=== PATIENT | male | born 1930 | race Caucasian/White ===

== ENCOUNTER 2017-04-15 12:03 | Emergency (ER) | payer OTHER ==
[2017-04-15 12:14] VITALS: TEMP 97.9
--- NOTE | 2017-04-15 12:34 | CPEKG ---
Heart Rate: 94 RR Interval: 638 P-R Interval: 208 QRSD Interval: 158 QT Interval: 412 QTC Interval: 516 P [place]: 67 QRS [place]: -80 T Wave [place]: 95 EKG Severity - ABNORMAL ECG - EKG Impression: ATRIAL-VENTRICULAR DUAL-PACED RHYTHM Electronically Signed By: Bam Chan 15-Apr-2017 13:15:30
[2017-04-15] MEDS ORDERED: NS 1,000 ML IV ONE (13:05)
--- NOTE | 2017-04-15 13:11 | EDPHY ---
H & P Stated Complaint: pts family howard states pt is weak/wobbly and has contusion to forehead Time Seen by Provider: 04/15/17 12:50 HPI/ROS: CHIEF COMPLAINT: Unsteady gait HISTORY OF PRESENT ILLNESS: Patient is an 87-year-old man who is brought to the emergency department with his family for unsteady gait and bump on his forehead. 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 Patient states that last night he was cold and so turned the heater up all the way. He states that he cannot see the numbers. Sometime during the night he presumably fell or bumped into a wall because he has a abrasion to his left forehead. He also has some mild pain in his right wrist. This morning when his sales representative [employer] came to see him they found him in the shower. The sales representative [employer] said his room was exceedingly hot. He needed more assistance than usual to get back to the bed. He thought that he was dehydrated so he drink a lot of water and then had to urinate. He states that he has felt woozy and wobbly all morning and was waiting for his symptoms to resolve but they did not. His daughter states that she noticed his left face seems slightly more weak than baseline. Patient had similar symptoms in December with a urinary tract infection. He also has a history of BPH. No fevers. No chest pain. No shortness of breath. REVIEW OF SYSTEMS: Constitutional: denies: chills, fever, recent illness, recent injury EENTM: denies: blurred vision, double vision, nose congestion Respiratory: denies: cough, shortness of breath Cardiac: denies: chest pain, irregular heart rate, lightheadedness, palpitations Gastrointestinal/Abdominal: denies: abdominal pain, diarrhea, nausea, vomiting, blood streaked stools Genitourinary: denies: dysuria, frequency, hematuria, pain Musculoskeletal: denies: joint pain, muscle pain Skin: denies: lesions, rash, jaundice, bruising Neurological: denies: headache, numbness, paresthesia, tingling, dizziness, weakness Hematologic/Lymphatic: denies: blood clots, easy bleeding, easy bruising Immunologic/allergic: denies: HIV/AIDS, transplant EXAM: GENERAL: Well-appearing, well-nourished and in no acute distress. HEAD: Atraumatic, normocephalic. EYES: Pupils equal round and reactive to light, extraocular movements intact, sclera anicteric, conjunctiva are normal. ENT: TMs normal, nares patent, oropharynx clear without exudates. Moist mucous membranes. NECK: Normal range of motion, supple without lymphadenopathy or JVD. LUNGS: Breath sounds clear to auscultation bilaterally and equal. No wheezes rales or rhonchi. HEART: Regular rate and rhythm without murmurs, rubs or gallops. ABDOMEN: Soft, nontender, normoactive bowel sounds. No guarding, no rebound. No masses appreciated. BACK: No CVA tenderness, no spinal tenderness, step-offs or deformities EXTREMITIES: Normal range of motion, no pitting or edema. No clubbing or cyanosis. NEUROLOGICAL: Very minimal decrease in the strength and smile on left. Some weakness at baseline possibly worse than baseline according to family. No tongue deviation. Normal forehead and eye closure.. Normal speech, normal gait. 5/5 strength, normal movement in all extremities, normal sensation. No drift in legs or hands. Normal cerebellar exam. No difficulty with speech. PSYCH: Normal mood, normal affect. SKIN: Warm, dry, normal turgor, no visible rashes or lesions. Source: Patient, Family - Personal History Current Tetanus/Diphtheria Vaccine: Unsure - Medical/Surgical History Hx Asthma: No Hx Chronic Respiratory Disease: No Hx Diabetes: No Hx Cardiac Disease: Yes Hx Renal Disease: No Hx Cirrhosis: No Hx Alcoholism: No Hx HIV/AIDS: No Hx Splenectomy or Spleen Trauma: No Other PMH: CVA, residual left-sided deficits, colon cancer, complete heart block , pacemaker - Family History Significant Family History: No pertinent family hx - Social History Smoking Status: Never smoked Alcohol Use: Sober Drug Use: None Constitutional: Initial Vital Signs Temperature (C) 36.6 C 04/15/17 12:09 Heart Rate 84 04/15/17 12:09 Respiratory Rate 16 04/15/17 12:09 Blood Pressure 156/79 H 04/15/17 12:09 O2 Sat (%) 98 04/15/17 12:09 O2 Delivery Mode Room Air Allergies/Adverse Reactions: No Known Allergies Allergy (Verified 04/15/17 12:08) Home Medications: Medication Instructions Recorded ASPIRIN 04/15/17 Amlodipine Besylate 04/15/17 Cephalexin [Keflex] 500 mg PO TID #21 cap 04/15/17 Finasteride 04/15/17 Lactaid 04/15/17 Levothyroxine 04/15/17 RAPAFLO 04/15/17 Valsartan 04/15/17 Medical Decision Making - Diagnostics EKG Interpretation: An EKG obtained and was read and documented in trace view. Please see trace view for full reading and report. AV paced rhythm, Imaging Results: Imaging Impressions Head CT 04/15/17 13:05 Impression: 1. Moderate atrophy. 2. No hemorrhage, mass effect, or definite acute peripheral infarct. 3. Mild nonspecific hypodensities in the white matter of bilateral cerebral hemispheres. Differential diagnosis includes microvascular ischemic disease, post-infectious/post-inflammatory sequela, atypical demyelinating disease, or migraine-related sequela. Small white matter lacunar infarcts may also have this appearance. If symptoms worsen, additional imaging may be necessary. Imaging: Discussed imaging studies w/ call center supervisor Radiologist ED Course/Re-evaluation: 2:05 p.m. we discussed the lab and imaging results. We discussed the possibility that this is caused by a mild UTI. Patient and family agree with this states that this is happened before. I will start him on Rocephin and discharged with Keflex. I did offer admission for observation to confirm that his symptoms improved but he and his family decline. They would prefer to go home. I gave them strict precautions to return here tomorrow if his symptoms are not improving or if they worsen at all. We did give the patient a road test here and his daughter states that he is at his baseline. They understand that I cannot completely rule out CVA. Differential Diagnosis: Partial list of the Differential diagnosis considered include but were not limited to; urinary tract infection, dehydration, CVA and although unlikely based on the history and physical exam, I also considered hemorrhage, electrolyte abnormality, thyroid abnormality. I discussed these differential diagnoses and the plan with the patient and family as well as the usual and expected course. The patient understands that the diagnosis is provisional and that in medicine we are not always correct and that further workup is often warranted. Usual and customary warnings were given. All of the patient's questions were answered. The patient was instructed to return to the emergency department should the symptoms at all worsen or return, otherwise to followup with the physician as we discussed. - Data Points Laboratory Results: Laboratory Results 04/15/17 12:30 04/15/17 12:30 04/15/17 04/15/17 04/15/17 13:35 12:30 12:30 WBC RBC Hgb Hct MCV MCH MCHC RDW Plt Count MPV Neut % (Auto) Lymph % (Auto) [place] % (Auto) Eos % (Auto) Baso % (Auto) Nucleat RBC Rel Count Absolute Neuts (auto) Absolute Lymphs (auto) Absolute Monos (auto) Absolute Eos (auto) Absolute Basos (auto) Absolute Nucleated RBC Immature Gran % Immature Gran # PT 13.2 SEC SEC (12.0-15.0) INR 0.98 (0.83-1.16) APTT 30.3 SEC SEC (23.0-38.0) Sodium 144 mEq/L mEq/L (134-144) Potassium 4.1 mEq/L mEq/L (3.5-5.2) Chloride 109 mEq/L mEq/L (97-110) Carbon Dioxide 22 mEq/l mEq/l (22-31) Anion Gap 13 mEq/L mEq/L (8-16) BUN 18 mg/dL mg/dL (7-23) Creatinine 1.0 mg/dL mg/dL (0.7-1.3) Estimated GFR > 60 Glucose 98 mg/dL mg/dL (70-100) Calcium 9.1 mg/dL mg/dL (8.5-10.4) Total Bilirubin 0.6 mg/dL mg/dL (0.1-1.4) Conjugated Bilirubin 0.4 mg/dL mg/dL (0.0-0.5) Unconjugated Bilirubin 0.2 mg/dL mg/dL (0.0-1.1) AST 27 IU/L IU/L (17-59) ALT 27 IU/L IU/L (21-72) Alkaline Phosphatase 74 IU/L IU/L (38-126) Total Protein 7.5 g/dL g/dL (6.3-8.2) Albumin 4.3 g/dL g/dL (3.5-5.0) TSH 2.170 uIU/mL uIU/mL (0.465-4.680) Free T4 1.23 ng/dL ng/dL (0.59-2.19) Urine Color YELLOW Urine Appearance CLEAR Urine pH 5.0 (5.0-7.5) Ur Specific [place] 1.017 (1.002-1.030) Urine Protein NEGATIVE (NEGATIVE) Urine Ketones NEGATIVE (NEGATIVE) Urine Blood NEGATIVE (NEGATIVE) Urine Nitrate NEGATIVE (NEGATIVE) Urine Bilirubin NEGATIVE (NEGATIVE) Urine Urobilinogen NEGATIVE EU EU (0.2-1.0) Ur Leukocyte Esterase TRACE H (NEGATIVE) Urine RBC 1-3 /hpf /hpf (0-3) Urine WBC 5-10 /hpf H /hpf (0-3) Ur Epithelial Cells NONE SEEN /lpf /lpf (NONE-1+) Urine Bacteria TRACE /hpf H /hpf (NONE SEEN) Urine Glucose NEGATIVE (NEGATIVE) 04/15/17 12:30 WBC 10.33 10^3/uL H 10^3/uL (3.80-9.50) RBC 4.67 10^6/uL 10^6/uL (4.40-6.38) Hgb 15.7 g/dL g/dL (13.7-17.5) Hct 44.2 % % (40.0-51.0) MCV 94.6 fL fL (81.5-99.8) MCH 33.6 pg pg (27.9-34.1) MCHC 35.5 g/dL g/dL (32.4-36.7) RDW 13.3 % % (11.5-15.2) Plt Count 236 10^3/uL 10^3/uL (150-400) MPV 11.7 fL fL (8.7-11.7) Neut % (Auto) 73.8 % % (39.3-74.2) Lymph % (Auto) 14.7 % L % (15.0-45.0) [place] % (Auto) 7.4 % % (4.5-13.0) Eos % (Auto) 2.9 % % (0.6-7.6) Baso % (Auto) 0.7 % % (0.3-1.7) Nucleat RBC Rel Count 0.0 % % (0.0-0.2) Absolute Neuts (auto) 7.63 10^3/uL H 10^3/uL (1.70-6.50) Absolute Lymphs (auto) 1.52 10^3/uL 10^3/uL (1.00-3.00) Absolute Monos (auto) 0.76 10^3/uL 10^3/uL (0.30-0.80) Absolute Eos (auto) 0.30 10^3/uL 10^3/uL (0.03-0.40) Absolute Basos (auto) 0.07 10^3/uL 10^3/uL (0.02-0.10) Absolute Nucleated RBC 0.00 10^3/uL 10^3/uL (0-0.01) Immature Gran % 0.5 % % (0.0-1.1) Immature Gran # 0.05 10^3/uL 10^3/uL (0.00-0.10) PT INR APTT Sodium Potassium Chloride Carbon Dioxide Anion Gap BUN Creatinine Estimated GFR Glucose Calcium Total Bilirubin Conjugated Bilirubin Unconjugated Bilirubin AST ALT Alkaline Phosphatase Total Protein Albumin TSH Free T4 Urine Color Urine Appearance Urine pH Ur Specific [place] Urine Protein Urine Ketones Urine Blood Urine Nitrate Urine Bilirubin Urine Urobilinogen Ur Leukocyte Esterase Urine RBC Urine WBC Ur Epithelial Cells Urine Bacteria Urine Glucose Medications Given: Discontinued Medications Sodium Chloride (Ns) 1,000 mls @ 0 mls/hr IV ONCE ONE; Wide Open PRN Reason: Protocol Stop: 04/15/17 13:06 Last Admin: 04/15/17 13:11 Dose: 1,000 mls Ceftriaxone Sodium/Dextrose (Rocephin 1 Gm (Premix)) 50 mls @ 100 mls/hr IV EDNOW ONE PRN Reason: Protocol Stop: 04/15/17 14:33 Last Admin: 04/15/17 14:09 Dose: 50 mls Departure - Departure Disposition: Home, Routine, Self-Care Clinical Impression: Weakness generalized Urinary tract infection Qualifiers: Urinary tract infection type: acute cystitis Hematuria presence: without hematuria Qualified Code(s): N30.00 - Acute cystitis without hematuria Condition: Fair Instructions: Urinary Tract Infection in Men (ED), Weakness (ED) Referrals: Shyanne Corey MD [Primary Care Provider] - As per Instructions Prescriptions: Cephalexin [Keflex] 500 mg PO TID #21 cap
[2017-04-15 13:12] VITALS: RESP 18; O2SAT 94
[2017-04-15 13:16] LABS: PLATELET COUNT 236 10^3/uL (150-400)
[2017-04-15 13:21] LABS: INR 0.98 (0.83-1.16); PROTIME(PATIENT) 13.2 SEC (12.0-15.0)
[2017-04-15 14:02] VITALS: PULSE 82
[2017-04-15 14:30] VITALS: BP 166/75
== END 2017-04-15 14:37 | disposition home or self-care (01) ==
DX: R53.1 Weakness (principal); N30.00 Acute cystitis without hematuria; B95.2 Enterococcus as the cause of diseases classified elsewhere; E86.9 Volume depletion, unspecified; Z79.82 Long term (current) use of aspirin; Z85.038 Personal history of other malignant neoplasm of large intestine; Z86.73 Personal history of transient ischemic attack (TIA), and cerebral infarction without residual deficits; Z95.0 Presence of cardiac pacemaker
CPT/HCPCS: 70450; 93005; 96361; 96365; 99285; J0696

== ENCOUNTER 2018-05-19 05:03 | Inpatient (IN) | payer OTHER ==
[2018-05-19] MEDS: NITROGLYCERIN 0.4 MG BTL SL PRN ×3 (05:20→05:51)
[2018-05-19] MEDS ORDERED: NITROGLYCERIN 0.4 MG BTL SL ONE (05:20)
[2018-05-19] MEDS ORDERED: NS 500 ML IV ONE (05:25)
--- NOTE | 2018-05-19 05:32 | EDPHY ---
H & P Stated Complaint: chest pain Source: Patient Exam Limitations: No limitations - Medical/Surgical History Hx Asthma: No Hx Chronic Respiratory Disease: No Hx Diabetes: No Hx Cardiac Disease: Yes Hx Renal Disease: No Hx Cirrhosis: No Hx Alcoholism: No Hx HIV/AIDS: No Hx Splenectomy or Spleen Trauma: No Other PMH: CVA, residual left-sided deficits, colon cancer, complete heart block , pacemaker - Social History Smoking Status: Never smoked <Nai Rodríguez - Last Filed: 05/19/18 06:52> <Genna Lawton - Last Filed: 05/19/18 08:16> Time Seen by Provider: 05/19/18 05:25 HPI/ROS: HPI The patient presents brought in by ambulance from [facility] with chest pain which awoke him from sleep at approximately 3:30 a.m.. The pain is described as a sharp sensation in his substernal region, mostly in the left portion of his chest. It has been constant since it started, improved with nitroglycerin given by paramedics, though now has returned. The pain does not radiate. He has not had it before. He has mild shortness of breath. He does not have any nausea, vomiting, dizziness, diaphoresis. He was feeling well yesterday when he went to bed. He was given full-dose aspirin in the ambulance. REVIEW OF SYSTEMS 10 systems were reviewed and negative with the exception of the elements mentioned in the history of present illness. PMHx: Complete heart block status post pacemaker placement by Dr. Ester mora, hypertension, history of TIA Soc Hx: Resides in assisted living, uses a walker and a motorized cart at baseline, here with his daughter PHYSICAL General Appearance: Alert, no distress Eyes: Pupils equal and round no pallor or injection ENT, Mouth: Mucous membranes moist Respiratory: There are no retractions, lungs are clear to auscultation Cardiovascular: Regular rate and rhythm Gastrointestinal: Abdomen is soft and non-tender, no masses, bowel sounds normal Neurological: A&O, moves all extremities Skin: Warm and dry, no rashes Musculoskeletal: Neck is supple non tender Extremities: symmetrical, full range of motion Psychiatric: Patient is oriented X 3, there is no agitation (Nai Rodríguez) Constitutional: Initial Vital Signs Temperature (C) 36.4 C 05/19/18 05:03 Heart Rate 88 05/19/18 05:03 Respiratory Rate 18 05/19/18 05:03 Blood Pressure 114/55 L 05/19/18 05:03 O2 Sat (%) 95 05/19/18 05:03 O2 Delivery Mode Room Air Allergies/Adverse Reactions: No Known Allergies Allergy (Verified 04/15/17 12:08) Home Medications: Medication Instructions Recorded Aspirin [Aspirin 81mg (*)] 81 mg PO DAILY 04/15/17 Finasteride [Proscar 5 MG (*)] 5 mg PO DAILY 04/15/17 Levothyroxine [Synthroid 88 mcg 88 mcg PO DAILY06 04/15/17 (*)] Silodosin [Rapaflo] 8 mg PO DAILY 04/15/17 Valsartan [Diovan (*)] 160 mg PO DAILY 04/15/17 amLODIPine BESYLATE [Norvasc 5 mg 5 mg PO DAILY 04/15/17 (*)] Herbals/Supplements -Info Only 1 ea PO DAILY 05/19/18 Medical Decision Making - Diagnostics Imaging: I viewed and interpreted images myself <Nai Rodríguez - Last Filed: 05/19/18 06:52> - Diagnostics Imaging: Discussed imaging studies w/ junior designer Radiologist, I viewed and interpreted images myself <Genna Lawton - Last Filed: 05/19/18 08:16> - Diagnostics EKG Interpretation: EKG: Complete interpretation has been separately recorded in the [employer] archive. Summary impression: AV dual paced rhythm at rate of 90 (Nai Rodríguez) Imaging Results: Chest x-ray two views shows pacer wires in place, no cardiomegaly, no infiltrate , interpreted by me, radiology interpretation pending. (Nai Rodríguez) ED Course/Re-evaluation: CT angiogram of chest: Negative study. Results were discussed with staff radiologist . The patient was transferred to the floor in stable condition at 8:15 a.m.. ( Genna Lawton) Differential Diagnosis: 88-year-old male with history of complete heart block status post pacemaker placement, TIA, hypertension presents from home with left-sided substernal chest pain which awoke him from sleep. Pain persists. Differential diagnosis includes ACS, GERD, gastritis, pneumonia, PE. I met the paramedics at the bedside to obtain their report. I have ordered additional nitroglycerin is patient's pain has returned. Plan to check basic labs, chest x-ray. Patient's labs are relatively unremarkable. I-STAT troponin is negative. D- dimer is slightly elevated. When I reassessed the patient, he was complaining of some back pain and rib cage pain so I did order CT scan of his chest for him. I have discussed admission to the hospital and the patient is agreeable. I have discussed the case with Dr. Elam who will admit the patient to the PCU. We are awaiting final read on the patient's CT angio chest at this time. HEART score is 4, moderate risk. (Nai Rodríguez) - Data Points Laboratory Results: Laboratory Results 05/19/18 05:03 05/19/18 05:03 05/19/18 05/19/18 05/19/18 05:03 05:03 05:03 WBC RBC Hgb Hct MCV MCH MCHC RDW Plt Count MPV Neut % (Auto) Lymph % (Auto) [place] % (Auto) Eos % (Auto) Baso % (Auto) Nucleat RBC Rel Count Absolute Neuts (auto) Absolute Lymphs (auto) Absolute Monos (auto) Absolute Eos (auto) Absolute Basos (auto) Absolute Nucleated RBC Immature Gran % Immature Gran # D-Dimer 0.91 ug/mLFEU H ug/mLFEU (0.00-0.50) Sodium 140 mEq/L mEq/L (135-145) Potassium 4.0 mEq/L mEq/L (3.5-5.2) Chloride 108 mEq/L mEq/L (97-110) Carbon Dioxide 20 mEq/l L mEq/l (22-31) Anion Gap 12 mEq/L mEq/L (6-14) BUN 23 mg/dL mg/dL (7-23) Creatinine 1.1 mg/dL mg/dL (0.7-1.3) Estimated GFR > 60 Glucose 196 mg/dL H mg/dL (70-100) Calcium 8.9 mg/dL mg/dL (8.5-10.4) Troponin I 0.027 ng/mL ng/mL (0.000-0.034) NT-Pro-B Natriuret Pep 319 pg/mL pg/mL (0-450) 05/19/18 05:03 WBC 13.77 10^3/uL H 10^3/uL (3.80-9.50) RBC 4.63 10^6/uL 10^6/uL (4.40-6.38) Hgb 14.5 g/dL g/dL (13.7-17.5) Hct 45.1 % % (40.0-51.0) MCV 97.4 fL fL (81.5-99.8) MCH 31.3 pg pg (27.9-34.1) MCHC 32.2 g/dL L g/dL (32.4-36.7) RDW 13.2 % % (11.5-15.2) Plt Count 250 10^3/uL 10^3/uL (150-400) MPV 11.6 fL fL (8.7-11.7) Neut % (Auto) 82.6 % H % (39.3-74.2) Lymph % (Auto) 9.8 % L % (15.0-45.0) [place] % (Auto) 5.4 % % (4.5-13.0) Eos % (Auto) 0.7 % % (0.6-7.6) Baso % (Auto) 0.6 % % (0.3-1.7) Nucleat RBC Rel Count 0.0 % % (0.0-0.2) Absolute Neuts (auto) 11.36 10^3/uL H 10^3/uL (1.70-6.50) Absolute Lymphs (auto) 1.35 10^3/uL 10^3/uL (1.00-3.00) Absolute Monos (auto) 0.75 10^3/uL 10^3/uL (0.30-0.80) Absolute Eos (auto) 0.10 10^3/uL 10^3/uL (0.03-0.40) Absolute Basos (auto) 0.08 10^3/uL 10^3/uL (0.02-0.10) Absolute Nucleated RBC 0.00 10^3/uL 10^3/uL (0-0.01) Immature Gran % 0.9 % % (0.0-1.1) Immature Gran # 0.13 10^3/uL H 10^3/uL (0.00-0.10) D-Dimer Sodium Potassium Chloride Carbon Dioxide Anion Gap BUN Creatinine Estimated GFR Glucose Calcium Troponin I NT-Pro-B Natriuret Pep Medications Given: Discontinued Medications Sodium Chloride (Ns) 500 mls @ 0 mls/hr IV EDNOW ONE; Wide Open PRN Reason: Protocol Stop: 05/19/18 05:26 Last Admin: 05/19/18 05:43 Dose: 500 mls Nitroglycerin (Nitrostat) 0.4 mg SL Q5M PRN PRN Reason: Chest Pain Last Admin: 05/19/18 05:51 Dose: 0.4 mg Departure <Nai Rodríguez - Last Filed: 05/19/18 06:52> <Genna Lawton - Last Filed: 05/19/18 08:16> - Departure Disposition: [facility] Inpatient Acute Clinical Impression: Chest pain Qualifiers: Chest pain type: unspecified Qualified Code(s): R07.9 - Chest pain, unspecified HTN (hypertension) Qualifiers: Hypertension type: essential hypertension Qualified Code(s): I10 - Essential ( primary) hypertension Condition: Fair
[2018-05-19 05:44] LABS: PLATELET COUNT 250 10^3/uL (150-400)
[2018-05-19] MEDS ORDERED: IOHEXOL 350mgI/ML (OMNIPAQUE) 150 ML BTL IV ONE ×2 (06:21→13:59)
[2018-05-19] MEDS ORDERED: ONDANSETRON DISINTEGRATING 4 MG TAB PO PRN (06:52)
[2018-05-19] MEDS ORDERED: ONDANSETRON 4 MG/2 ML VIAL IVP PRN (06:52)
[2018-05-19] MEDS ORDERED: ACETAMINOPHEN 325 MG TAB PO PRN ×2 (06:52→13:48)
--- NOTE | 2018-05-19 07:12 | PDGENHP ---
History and Physical - Chief Complaint Chest pain - History of Present Illness 88 yo M w/ hx of HTN, CHB s/p PPM, and BPH presents with chest pain. The patient was woken up from sleep around 2 AM with severe, central chest pain. This lasted about 20 minutes and subsided, so he tried to go back to sleep. The pain returned again around 4 AM and persisted for long so he came in to the ED for evaluation. He reports diaphoresis during the event and some mild L arm involvement. In the ED his pain improved after nitroglycerin. His point of care troponin was negative and ECG shows V-pacing. He is being admitted for further evaluation. Case discussed with ED physician Dr. Rodríguez; records reviewed and summarized above. History Information - Allergies/Home Medication List Allergies/Adverse Reactions: No Known Allergies Allergy (Verified 04/15/17 12:08) Home Medications: ASPIRIN 04/15/17 [Last Taken Unknown] Amlodipine Besylate 04/15/17 [Last Taken Unknown] Finasteride 04/15/17 [Last Taken Unknown] Lactaid 04/15/17 [Last Taken Unknown] Levothyroxine 04/15/17 [Last Taken Unknown] RAPAFLO 04/15/17 [Last Taken Unknown] Valsartan 04/15/17 [Last Taken Unknown] I have personally reviewed and updated: family history, medical history - Past Medical History hypertension Additional medical history: BPH. Complete heart block - Surgical History Reports: pacemaker/AICD - Family History Negative for: CAD - Social History Smoking Status: Never smoked Review of Systems Review of Systems: ROS: 10pt was reviewed & negative except for what was stated in HPI & below Physical Exam Physical Exam: Temp Pulse Resp BP Pulse Ox 36.4 C 88 18 115/63 97 05/19/18 05:03 05/19/18 06:48 05/19/18 06:48 05/19/18 06:48 05/19/18 06:48 Constitutional: no apparent distress, appears nourished Eyes: PERRL, EOMI Ears, Nose, Mouth, Throat: moist mucous membranes, no oral mucosal ulcers Cardiovascular: regular rate and rhythym, systolic murmur Respiratory: no respiratory distress, clear to auscultation Gastrointestinal: normoactive bowel sounds, soft, non-tender abdomen Skin: warm, normal color Musculoskeletal: full muscle strength, no muscle tenderness Neurologic: AAOx3, CN II-XII Intact Psychiatric: interacting appropriately, not anxious Lab Data & Imaging Review 05/19/18 05:03 05/19/18 05:03 WBC 13.77 10^3/uL (3.80-9.50) H 05/19/18 05:03 RBC 4.63 10^6/uL (4.40-6.38) 05/19/18 05:03 Hgb 14.5 g/dL (13.7-17.5) 05/19/18 05:03 Hct 45.1 % (40.0-51.0) 05/19/18 05:03 MCV 97.4 fL (81.5-99.8) 05/19/18 05:03 MCH 31.3 pg (27.9-34.1) 05/19/18 05:03 MCHC 32.2 g/dL (32.4-36.7) L 05/19/18 05:03 RDW 13.2 % (11.5-15.2) 05/19/18 05:03 Plt Count 250 10^3/uL (150-400) 05/19/18 05:03 MPV 11.6 fL (8.7-11.7) 05/19/18 05:03 Neut % (Auto) 82.6 % (39.3-74.2) H 05/19/18 05:03 Lymph % (Auto) 9.8 % (15.0-45.0) L 05/19/18 05:03 [place] % (Auto) 5.4 % (4.5-13.0) 05/19/18 05:03 Eos % (Auto) 0.7 % (0.6-7.6) 05/19/18 05:03 Baso % (Auto) 0.6 % (0.3-1.7) 05/19/18 05:03 Nucleat RBC Rel Count 0.0 % (0.0-0.2) 05/19/18 05:03 Absolute Neuts (auto) 11.36 10^3/uL (1.70-6.50) H 05/19/18 05:03 Absolute Lymphs (auto) 1.35 10^3/uL (1.00-3.00) 05/19/18 05:03 Absolute Monos (auto) 0.75 10^3/uL (0.30-0.80) 05/19/18 05:03 Absolute Eos (auto) 0.10 10^3/uL (0.03-0.40) 05/19/18 05:03 Absolute Basos (auto) 0.08 10^3/uL (0.02-0.10) 05/19/18 05:03 Absolute Nucleated RBC 0.00 10^3/uL (0-0.01) 05/19/18 05:03 Immature Gran % 0.9 % (0.0-1.1) 05/19/18 05:03 Immature Gran # 0.13 10^3/uL (0.00-0.10) H 05/19/18 05:03 D-Dimer 0.91 ug/mLFEU (0.00-0.50) H 05/19/18 05:03 Sodium 140 mEq/L (135-145) 05/19/18 05:03 Potassium 4.0 mEq/L (3.5-5.2) 05/19/18 05:03 Chloride 108 mEq/L (97-110) 05/19/18 05:03 Carbon Dioxide 20 mEq/l (22-31) L 05/19/18 05:03 Anion Gap 12 mEq/L (6-14) 05/19/18 05:03 BUN 23 mg/dL (7-23) 05/19/18 05:03 Creatinine 1.1 mg/dL (0.7-1.3) 05/19/18 05:03 Estimated GFR > 60 05/19/18 05:03 Glucose 196 mg/dL (70-100) H 05/19/18 05:03 Calcium 8.9 mg/dL (8.5-10.4) 05/19/18 05:03 NT-Pro-B Natriuret Pep 319 pg/mL (0-450) 05/19/18 05:03 Visualized and Interpreted Chest x-ray results: Yes Chest X-Ray results: no infiltrate, other (Pacemaker noted) Visualized and Interpreted EKG results: Yes EKG Interpretation: Positive for: other (V-paced rhythm) Assessment & Plan Assessment: 88 yo M w/ HTN and CHB s/p PPM presents with chest pain. Plan: 1. Chest pain - Severe, sub-sternal chest pain with diaphoresis and radiation to L arm; improved with NTG. Troponin negative and ECG (personally reviewed/ interpreted) with V-pacing. D-dimer mildly elevated. He denies personal or family hx of CAD. HEART score of 5 denoting need for further evaluation. - Admit to PCU for observation - Monitor on telemetry, trend cardiac enzymes - ECG, NTG PRN for chest pain - CTA ordered in ED to rule out pulmonary embolism - Lexiscan, nuclear stress test ordered noting V-paced rhythm 2. CHB - S/p pacemaker placement, now pacer dependent. 3. HTN - Continue home medications pending reconciliation 4. BPH Diet - NPO Code - Full Ppx - LMWH Dispo - Admit under observation status
[2018-05-19] MEDS ORDERED: NITROGLYCERIN 0.4 MG BTL SL PRN (07:14)
--- NOTE | 2018-05-19 12:24 | HOSPPROG ---
Hospitalist Progress Note Assessment/Plan: 88 yo M w/ HTN and CHB s/p PPM presents with chest pain. 1. Acute coronary syndrome: As evidenced by typical chest pain, elevated troponin, abnormal ECG. - Cardiology consulted, planning on urgent coronary angiography +/- intervention today - Trend troponin to peak, remain on telemetry - Continue aspirin, SL nitro PRN 2. CHB: S/p pacemaker placement. 3. HTN: Holding home valsartan and amlodipine with low BPs. 4. BPH: Continue home meds VTE ppx: LMWH Code: full Diet: NPO until procedure, then cardiac Dispo: Switch to inpatient for management of ACS Subjective: Still with left sided chest pain and nausea. No shortness of breath. Objective: Vital Signs Temp Pulse Resp BP Pulse Ox 36.7 C 86 14 119/66 94 05/19/18 08:45 05/19/18 08:45 05/19/18 08:45 05/19/18 08:45 05/19/18 08:45 05/18/18 05/19/18 05/20/18 05:59 05:59 05:59 Intake Total 500 Output Total 10 Balance 490 - Physical Exam Constitutional: no apparent distress, appears nourished, not in pain Eyes: PERRL, anicteric sclera, EOMI Ears, Nose, Mouth, Throat: moist mucous membranes, hearing normal, ears appear normal, no oral mucosal ulcers Cardiovascular: regular rate and rhythym, systolic murmur, No edema Respiratory: no respiratory distress, no rales or rhonchi, clear to auscultation Gastrointestinal: normoactive bowel sounds, soft, non-tender abdomen, no palpable masses Genitourinary: no bladder fullness, no bladder tenderness, no renal bruits Skin: no rashes or abrasions, no fluctuance, no induration Musculoskeletal: full muscle strength, no muscle tenderness, normal joint ROM Neurologic: AAOx3, sensation intact bilaterally Psychiatric: interacting appropriately, not anxious, not encephalopathic, thought process linear ICD10 Worksheet Patient Problems: Problems Problem Status Onset Chest pain Acute HTN (hypertension) Acute
[2018-05-19] MEDS: ENOXAPARIN 40 MG/0.4 ML SYR SC SCH (12:27)
[2018-05-19] MEDS ORDERED: TEMAZEPAM 15 MG CAP PO PRN (13:48)
[2018-05-19] MEDS ORDERED: FAMOTIDINE 20 MG TAB PO ONE (13:48)
[2018-05-19] MEDS ORDERED: ASPIRIN EC 325 MG TAB PO ONE (13:48)
[2018-05-19] MEDS ORDERED: MIDAZOLAM 2 MG/2 ML VIAL ONE (13:58)
[2018-05-19] MEDS ORDERED: fentaNYL 100 MCG/2 ML INJ ONE (13:58)
[2018-05-19] MEDS ORDERED: LIDOCAINE 1% 300 MG/30 ML SDV ONE (13:58)
--- NOTE | 2018-05-19 14:10 | PDPROPOC ---
Sedation Plan of Care Sedation Plan of Care: mental status noted, patient educated of risks, benefits , alternatives, patient can tolerate sedation ASA Classification: ASA 3 Planned drugs: fentanyl, midazolam Mallampati Score: Class 3 Mallampati Reference Image: Patient passed 3-3-2 rule?: Yes
--- NOTE | 2018-05-19 14:10 | PDHPUP ---
History & Physical Update H&P update statement: This history and physical update is based on an assessment of the patient which was completed after admission or registration (within 24 hours), but prior to the surgery/procedure. H&P update: H&P reviewed & patient examined, no change in patient's condition since H&P completed
[2018-05-19] MEDS: LEVOTHYROXINE 88 MCG TAB PO SCH (14:22)
[2018-05-19] MEDS ORDERED: CLOPIDOGREL BISULFATE 75 MG TAB ONE (14:31)
--- NOTE | 2018-05-19 14:36 | GCON ---
[f rep st] CONSULTATION CARDIAC CONSULTATION DATE OF CONSULTATION: 05/19/2018 CHIEF COMPLAINT: Chest pain. HISTORY OF PRESENT ILLNESS: Chip is an 88-year-old male with a history of hyperlipidemia and complete heart block status post pacemaker who presented to the hospital with chest pain. He woke up at 2 AM with left-sided sharp chest pain, diaphoresis and nausea. He was able to go back to sleep but awoke again around 4 AM with recurrent symptoms. He lives at [facility] and was able to ask for help at that point. He was brought emergently to the ER and was complaining of rib discomfort which was improved with a nitroglycerin. The patient does have some memory issues, and therefore, his daughter has given some of the information. He currently is complaining of chest pressure which he states has been present since his event at 2 AM. He is also having some mild nausea. His initial troponin was 0.027, is currently 0.813. His EKG shows a paced rhythm, but there is ST elevation in the inferior leads of 4-5 mm. 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 FAMILY HISTORY: Noncontributory. SOCIAL HISTORY: He currently lives at [facility] in [facility]. He is currently accompanied by his daughter. He denies any ongoing tobacco use. MEDICATIONS: 1. Valsartan 160 mg daily. 2. Rapaflo 8 mg daily. 3. Synthroid 88 mcg daily. 4. Proscar 5 mg daily. 5. Aspirin 81 mg daily. 6. Norvasc 5 mg daily. 7. Herbal supplement daily. ALLERGIES: No known drug allergies. PHYSICAL EXAMINATION: GENERAL: Patient appears in no acute distress. VITALS: Blood pressure 128/68, heart rate 99. Oxygen saturation 93% on room air. Afebrile. EYES: Normal sclera. NECK: No carotid bruits or JVD present. LUNGS: Clear to auscultation. No wheezes, rhonchi or crackles auscultated. CARDIAC: Regular rate and rhythm, without any significant murmurs, rubs or gallops appreciated. ABDOMEN: Soft, nontender, nondistended. Bowel sounds present. EXTREMITIES: Palpable pulses bilaterally without any evidence of edema. NEUROLOGICAL: He has some mild memory issues. PSYCHIATRIC: Mood and affect appropriate. SKIN: No obvious rashes or ecchymosis identified. LABORATORY: WBCs 13.77, hemoglobin 14.5, hematocrit 45.1, platelets 250. D- dimer 0.91. Troponin 0.027, 0.813. BNP 319. Sodium 140, potassium 4, chloride 108, bicarbonate 20, BUN 23, creatinine 1.1. DIAGNOSTIC STUDIES: Chest CTA was negative for pulmonary embolus. EKG shows AV pacing with 4-[address] elevation in the inferior leads. His preliminary echocardiogram results show an inferior wall motion abnormality. ASSESSMENT: The patient is an 88-year-old male with a history of hypertension and hyperlipidemia who presents with acute coronary syndrome. PLAN: Chip presented to the hospital with chest pain that began at 2:00 this morning. His troponin is now elevated at 0.8. He is also having ongoing chest pain. His EKG is abnormal with ST elevation in the inferior leads. He is paced , but this appears to be 4-5 mm. His echocardiogram also shows an inferior wall motion abnormality. The patient was discussed with Dr. Bharathi Felix as well as with the patient's power of supervisor residential, which is his daughter. Medical therapy versus angiogram was discussed, and they wished to proceed with an angiogram. The patient has a history of hyperlipidemia but has been statin intolerant in the past. I will repeat lipids tomorrow morning. /[id number]/MODL MTDD
--- NOTE | 2018-05-19 14:45 | ECHO ---
[email or web address] [address] [address] Main: [phone] Fax: Transthoracic Echocardiogram Name: MARCELLUS MERRILL MR#: [id number] Study Date: 05/19/2018 Study Time: 01:19 PM Date of : 1930 Age: 88 year(s) Height: 177.8 cm (70 in.) Weight: 90.72 kg (200 lb.) BSA: 2.09 m2 Gender: Male Examination: Echo Indication: Eval for wall motion abnormality, eval valvles, hx pacer/ previous at [facility] [place] Image Quality: Technically Difficult Contrast: Requested by: Benji Brantley BP: 123 mmHg/68 mmHg Heart Rate: Rhythm: Indication: Eval for wall motion abnormality, eval valvles, hx pacer/ previous at [facility] [place] Procedure Staff Party Plan Demonstrator: Ban Danielle [facility] Reading Physician: Alfredo Felix MD Requesting Provider: Conclusions: Normal size left ventricle. The ejection fraction is estimated to be 40-45 %. LV basal, mid and apical inferior keith are akinetic. LV septal wall is consistent with conduction abnormality.. There is a pacemaker lead noted in the right ventricle. The left atrium is mildly dilated. Mild-moderate mitral annular calcification. Mild mitral valve regurgitation is present. Minimal aortic cusp calcification is noted. Mild to moderate tricuspid valve regurgitation. RVSP is normal.. Trivial pericardial effusion. Left side pleural effusion. Measurements: Chambers Valvular Assessment AV/MV Valvular Assessment TV/PV Normal Normal Normal Name Value Range Name Value Range Name Value Range Ao Sara (MM): 3.5 cm (2.2 cm-3.7 AV Vmax: 1.07 m/s (1 m/s-1.7 TR Vmax: 2.41 mm/s ( - ) cm) m/s) TR PGmax: 23 mmHg ( - ) IVSd (2D): 1.3 cm (0.6 cm-1.1 AV meanP mmHg ( - ) syst. PAP: 28 mmHg ( - ) cm) MV A Vmax: 1.19 m/s ( - ) LVDd (2D): 5.0 cm (4.2 cm-5.9 cm) LVPWd (2D): 1.0 cm (0.6 cm-1 cm) EF Range: 40-45 % Continued Measurements: Patient: MARCELLUS MERRILL Study Date: 05/19/2018 Page 1 of 2 01:19 PM Chambers Valvular Assessment AV/MV Valvular Assessment TV/PV Name Value Name Value Name Value LADs: 5.1 cm MV E' Septal: 0.05 m/s CVP (est.): 5 mmHg LADs Lon.1 cm LA Area: 24.2 cm2 LA Volume: 76 ml LA Volume Index: 36.4 ml/m2 Additional Vessels Name Value Ao Ascendin.7 cm Findings: Left Ventricle: Normal size left ventricle. No LV hypertrophy. The ejection fraction is estimated to be 40-45 %. LV basal, mid and apical inferior keith are akinetic. LV septal wall is consistent with conduction abnormality.. Right Ventricle: Normal size right ventricle. There is a pacemaker lead noted in the right ventricle. Left Atrium: The left atrium is mildly dilated. Right Atrium: The right atrium is normal in size. Mitral Valve: Mild-moderate mitral annular calcification. Mild mitral valve regurgitation is present. Aortic Valve: The aortic valve is tri-leaflet. Minimal aortic cusp calcification is noted. Tricuspid Valve: The tricuspid valve is normal in appearance and function. Mild to moderate tricuspid valve regurgitation. RVSP is normal.. Pulmonic Valve: The pulmonic valve is normal in appearance and function. Aorta: The aorta is normal. Pericardium: Trivial pericardial effusion. Left side pleural effusion. (No Signature Object) Patient: MARCELLUS MERRILL Study Date: 05/19/2018 Page 2 of 2 01:19 PM [id number]
[2018-05-19] MEDS ORDERED: BIVALIRUDIN 250 MG/5 ML VIAL IV ONE (14:47)
--- NOTE | 2018-05-19 15:49 | CPEKG ---
Test Reason : OPEN Blood Pressure : / mmHG Vent. Rate : 096 BPM Atrial Rate : 096 BPM P-R Int : 178 ms QRS Dur : 166 ms QT Int : 378 ms P-R-T Axes : 058 -60 110 degrees QTc Int : 478 ms A-V dual-paced rhythm Confirmed by Chandana Richter ([id number]) on 05/19/2018 3:49:05 PM Referred By: Cb Elam Confirmed By:Chandana Richter
--- NOTE | 2018-05-19 15:51 | CPEKG ---
Test Reason : OPEN Blood Pressure : / mmHG Vent. Rate : 100 BPM Atrial Rate : 096 BPM P-R Int : 069 ms QRS Dur : 164 ms QT Int : 378 ms P-R-T Axes : 000 -61 107 degrees QTc Int : 488 ms A-V dual-paced rhythm Confirmed by Chandana Richter ([id number]) on 05/19/2018 3:50:22 PM Referred By: Cb Elam Confirmed By:Chandana Richter
--- NOTE | 2018-05-19 16:01 | CPIP ---
[f rep st] INVASIVE CARDIAC PROCEDURE DATE OF PROCEDURE: 05/19/2018 INDICATIONS FOR PROCEDURE: NSTEMI. PROCEDURE: 1. Nonselective right groin sheathogram. 2. Bilateral coronary angiography. 3. Left heart catheterization. 4. Left ventriculogram. 5. Percutaneous coronary intervention of mid right coronary artery utilizing Synergy 3.5 x 20 mm aries g-eluting stent. HISTORY OF PRESENT ILLNESS: Briefly, an 88-year-old male with history of pacemaker placement, came t o the emergency room with chest pain. The patient was found to have a paced rhythm with nonspecific changes as well as an elevated troponin level. The patient was consented for a diagnostic cardiac ca theterization. DESCRIPTION OF PROCEDURE: After informed consent was obtained, the patient was brought to [facility] where the right groin was prepped and draped in sterile fashion. Using lidocaine, a s hort 6-Bengali sheath through the right femoral artery verified angiographically. Through a 6-Bengali sheath a JL4 catheter was advanced to left coronary artery. Imaging of his left coronary artery reve aled a high-grade 90% ostial prox LAD lesion. The mid LAD had another area approximately 70% narrowi ng calcified which gave off 2 diagonal arteries. The inferior portion of the inferior diagonal arter y had what appeared to be at least 50% disease in the ostium. After the bifurcation of the diagonal arteries, there was diffuse 50% to 60% disease after this area and then normal vessel distally. The left circumflex artery had what appeared to be at least a 40% to 50% lesion in its midportion, giving off multiple marginal arteries. After these images were obtained, the JL4 catheter was removed. Th e JR4 catheter was advanced to the right coronary artery, which revealed nominal ostial RCA, 100% mid RCA occlusion. The JR4 catheter was removed. INTERVENTION REPORT: At this time, the patient was administered Angiomax bolus and drip and 600 Plav ix p.o. A JR4 6-Bengali guide catheter was advanced to the right coronary artery. A Choice PT wire w as advanced down to the distal RPDA. Predilatation was performed with a 3.0 x 12 balloon at 10 atmos pheres. After this was performed, angiographic images were obtained, which showed improved patency o f the mid RCA. We then proceeded with stenting this vessel with a 3.5 x 20 mm Synergy drug-eluting s tent which was deployed successfully at 16 atmospheres. Post-deployment angiogram was obtained which showed excellent patency of the stented region with no evidence of dissection or perforation. Dista lly, there appeared to be mild to moderate plaque disease in the RPD, RPL , however, no foc al lesions. The JR4 catheter was removed as well as the 0.035 wire. A pigtail catheter was advanced to the left ventricle. EDP was 20 mmHg. Left ventriculogram in the CAMPBELL projection showed EF of 40% with inferior wall hypokinesis. There was no pull-back LV and the aorta. Pigtail cathet er was removed over a 0.035 wire. Right groin was closed with 6-Bengali Angio-Seal. The patient tole rated the procedure well with no complications. IMPRESSION: 1. Successful percutaneous coronary intervention of 100% occluded mid right coronary artery with aries g-eluting stent Synergy 3.5 x 20 mm. 2. High-grade ostial and mid left anterior descending disease as well as moderate mid left circumfle x disease with a reduced ejection fraction to be discussed with family about further interventions gi masood the patient's baseline dementia/clinical status. /[id number]/MODL
[2018-05-19] MEDS ORDERED: PROMETHAZINE HCL 25 MG/ML INJ IVP PRN (18:11)
[2018-05-20] MEDS: LEVOTHYROXINE 88 MCG TAB PO SCH (04:01)
[2018-05-20 05:06] LABS: PLATELET COUNT 224 10^3/uL (150-400)
--- NOTE | 2018-05-20 07:32 | PDCARPN ---
Cardiology Progress Note Chief Complaint: CP/NSTEMI Assessment/Plan: Assessment: CP/NSTEMI s/p PCI of RCA diffuse LCA disease Plan: 05/20/18 07:29 patient is CP free very pleasant but very confused on PPT I had spoken with daughter extensively yesterday--the patient has severe LCA disease (LAD and LCX) which would be a complicated PCI procedure Given age/dementia/recent PCI as well as family's hesitancy, CABG does not seem like suitable alternative Daughter indicated to me that medical therapy for pt's remaining CAD would be preferable than aggressive PCI She will d/w rest of family Pt currently stable Subjective: doing well Reviewed/Discussed With: multidisciplinary team Time Spent with Patient: greater than 25 minutes Time Spent with Patient: Greater than 25 minutes spent on this patients care, greater than 50% of time spent counseling, educating, and coordinating care regarding the above mentioned plan. Objective: Vital Signs (8 Hrs) Temp Pulse Resp BP Pulse Ox 05/20/18 04:00 37.6 C 87 19 121/68 H 93 05/20/18 00:00 37.6 C 87 16 137/78 H 96 Intake/Output (24 Hrs) 05/19/18 05/20/18 05/21/18 05:59 05:59 05:59 Intake Total 600 Output Total 10 Balance 590 Intake: Oral (ml) 100 IV Infused (ml) 500 Output: Urine (ml) 10 Urinal 10 Other: Weight 90.718 kg Intake Quantity No Sufficient Output Comment Urinal Most of the urine was in the brief. Number of Voids Diapers/Briefs 1 Incontinence 4 Urinal 1 Number of Stools Incontinence 2 Result Diagrams: 05/20/18 04:06 05/20/18 04:06 Cardiac Labs: Cardiac Lab Results (72 Hrs) 05/19/18 05/19/18 13:55 10:08 Troponin I 5.700 H 0.813 H - Physical Exam Constitutional: healthy appearing Eyes: PERRL Ears, Nose, Mouth, Throat: moist mucous membranes Cardiovascular: regular rate and rhythm Peripheral Pulses: 1+: femoral (R), femoral (L) Respiratory: clear to auscultate bilat Gastrointestinal: normoactive bowel sounds Genitourinary: no suprapubic tenderness Skin: no rashes Musculoskeletal: no muscular tenderness Neurologic: other (pleasantly confused) ICD10 Worksheet Patient Problems: Problems Problem Status Onset Chest pain Acute HTN (hypertension) Acute chronic disease mgmt/transitional care Acute
[2018-05-20] MEDS: ASPIRIN 81 MG CHEWABLE TAB PO SCH (08:44)
[2018-05-20] MEDS: FINASTERIDE 5 MG TAB PO SCH (08:44)
[2018-05-20] MEDS: CLOPIDOGREL BISULFATE 75 MG TAB PO SCH (08:45)
[2018-05-20] MEDS: ENOXAPARIN 40 MG/0.4 ML SYR SC SCH (08:46)
--- NOTE | 2018-05-20 11:46 | CPEKG ---
Test Reason : OPEN Blood Pressure : / mmHG Vent. Rate : 081 BPM Atrial Rate : 080 BPM P-R Int : 216 ms QRS Dur : 160 ms QT Int : 401 ms P-R-T Axes : 040 -65 114 degrees QTc Int : 466 ms Atrial-ventricular dual-paced rhythm Confirmed by Chandana Richter ([id number]) on 05/20/2018 11:46:25 AM Referred By: Cb Elam Confirmed By:Chandana Richter
--- NOTE | 2018-05-20 11:48 | CPEKG ---
Test Reason : OPEN Blood Pressure : / mmHG Vent. Rate : 092 BPM Atrial Rate : 092 BPM P-R Int : 204 ms QRS Dur : 163 ms QT Int : 381 ms P-R-T Axes : 070 -72 107 degrees QTc Int : 472 ms Atrial-sensed ventricular-paced rhythm Confirmed by Chandana Richter ([id number]) on 05/20/2018 11:48:19 AM Referred By: Cb Elam Confirmed By:Chandana Richter
--- NOTE | 2018-05-20 12:28 | HOSPPROG ---
Hospitalist Progress Note Assessment/Plan: 88 yo M w/ HTN and CHB s/p PPM presents with chest pain found to have NSTEMI. 1. Acute coronary syndrome: As evidenced by typical chest pain, elevated troponin, abnormal ECG. Now chest pain free. - s/p PCI to RCA - Has diffuse disease to left coronary system. Per cards, would be complex PCI procedure. Risks of CABG likely outweigh risks. - Patient and family do not seem interested in high risk PCI or CABG, which is very reasonable, especially since his symptoms are controlled. Will pursue medical management - ASA 81, clopidogrel 75 - Bad reaction to statins in the past so not initiating 2. Acute metabolic encephalopathy: Due to medications/environment. Now improving. Likely has component of mild chronic dementia - currently lives independently. - Discontinued all centrally acting meds (phenergan, muscle relaxer) 3. Deconditioning - PT/OT 3. CHB: S/p pacemaker placement. 4. HTN: Holding home valsartan and amlodipine with low BPs. 5. BPH: Continue home meds VTE ppx: LMWH Code: full Diet: NPO until procedure, then cardiac Dispo: Remain inpatient for ongoing cardiac monitoring. Also unsafe to discharge from mobility stand point. Subjective: Sundowned last night. Very lethargic all morning. Daughter concerned. Chest pain has resolved since PCI. Objective: Vital Signs Temp Pulse Resp BP Pulse Ox 37.3 C 81 18 107/54 L 94 05/20/18 12:00 05/20/18 12:00 05/20/18 12:00 05/20/18 12:00 05/20/18 12:00 Laboratory Results 05/20/18 04:06 05/20/18 04:06 05/19/18 05/20/18 05/21/18 05:59 05:59 05:59 Intake Total 600 Output Total 10 Balance 590 - Physical Exam Constitutional: no apparent distress, not in pain Eyes: PERRL Ears, Nose, Mouth, Throat: moist mucous membranes Cardiovascular: regular rate and rhythym, no murmur, rub, or gallop, No edema Respiratory: no respiratory distress, no rales or rhonchi, clear to auscultation Gastrointestinal: normoactive bowel sounds, soft, non-tender abdomen, no palpable masses Genitourinary: no bladder fullness, no bladder tenderness, no renal bruits Skin: no rashes or abrasions, no fluctuance, no induration Musculoskeletal: generalized weakness Neurologic: AAOx3 Psychiatric: interacting appropriately ICD10 Worksheet Patient Problems: Problems Problem Status Onset Chest pain Acute HTN (hypertension) Acute chronic disease mgmt/transitional care Acute
--- NOTE | 2018-05-20 13:21 | PDMN ---
Medical Necessity Medical necessity: MCG M89 CP, A-1 day: 88 yo w/ CP, initially OBS for cardiac workup. Change to IP status same day as pt cont w/ CP, elevated troponin and abn ECG=acute coronary syndrome. Urgent cardiology consult, urgent coronary angiography scheduled. Change to IP status 05/19/18@1652 per MD order
--- NOTE | 2018-05-20 17:16 | ASMTCMCOM ---
CM Note CM Note Notes: 05/20/2018 Case Management Note Discussed pt during rounds this morning. Pt admitted for chest pain, NSTEM h/o TIA 05/2016. Met w/pt and daughter Catrachita [phone] today to discuss d/c needs. Pt lives alone at [facility]. Catrachita had hired private caregivers to come twice a day for 3 hours a viist. Pt takes meals in the dining garza. Pt does not use [facility] services. Pt has history of sundowning here in hospital. Faxed referrals to [facility] for RN PT OT d/t dementia specific programs. Case Management d/c poc: [facility] pending acceptance. Case Management to follow. Date Signed: 05/20/2018 05:16 PM Electronically Signed By:Nay Boothe RN
[2018-05-20] MEDS: ISOSORBIDE DINITRATE 10 MG TAB PO SCH (17:49)
[2018-05-20] MEDS: (Silodosin [Rapaflo] 8 MG) PO SCH (17:50)
[2018-05-21] MEDS: LEVOTHYROXINE 88 MCG TAB PO SCH (05:53)
--- NOTE | 2018-05-21 07:20 | PDCARPN ---
Cardiology Progress Note Chief Complaint: CP Assessment/Plan: Assessment: CP/NSTEMI s/p PCI of RCA diffuse LCA disease Plan: 05/20/18 07:29 patient is CP free very pleasant but very confused on PPT I had spoken with daughter extensively yesterday--the patient has severe LCA disease (LAD and LCX) which would be a complicated PCI procedure Given age/dementia/recent PCI as well as family's hesitancy, CABG does not seem like suitable alternative Daughter indicated to me that medical therapy for pt's remaining CAD would be preferable than aggressive PCI She will d/w rest of family Pt currently stable 05/21/18 07:17 doing well no CP pleasantly confused d/c w family yesterday--no aggressive PCI/surgery for LCA disease--medical tx only also discussed possible possible outpatient hospice to avoid unnecessary admissions for CP OK to d/c from CV standpoint Subjective: stable Reviewed/Discussed With: multidisciplinary team Time Spent with Patient: greater than 25 minutes Time Spent with Patient: Greater than 25 minutes spent on this patients care, greater than 50% of time spent counseling, educating, and coordinating care regarding the above mentioned plan. Objective: Vital Signs (8 Hrs) Temp Pulse Resp BP Pulse Ox 05/21/18 04:00 36.9 C 86 16 129/67 H 94 05/20/18 23:53 36.8 C 89 16 116/63 93 Intake/Output (24 Hrs) 05/20/18 05/21/18 05/22/18 05:59 05:59 05:59 Intake Total 100 750 Output Total 50 Balance 100 700 Intake: Oral (ml) 100 750 Output: Urine (ml) 50 Bedside Commode 50 Other: Intake Quantity No Sufficient Number of Voids Diapers/Briefs 1 Incontinence 4 1 Number of Stools Bedside Commode 1 Incontinence 2 Result Diagrams: 05/21/18 03:54 05/21/18 03:54 - Physical Exam Constitutional: no apparent distress Eyes: PERRL Ears, Nose, Mouth, Throat: moist mucous membranes Cardiovascular: regular rate and rhythm Peripheral Pulses: 1+: femoral (R), femoral (L) Respiratory: clear to auscultate bilat Gastrointestinal: normoactive bowel sounds Genitourinary: no suprapubic tenderness Skin: no rashes Musculoskeletal: no muscular tenderness Neurologic: other (confused to PPT) Psychiatric: cooperative ICD10 Worksheet Patient Problems: Problems Problem Status Onset Chest pain Acute HTN (hypertension) Acute chronic disease mgmt/transitional care Acute
[2018-05-21] MEDS: CLOPIDOGREL BISULFATE 75 MG TAB PO SCH (09:01)
[2018-05-21] MEDS: ASPIRIN 81 MG CHEWABLE TAB PO SCH (09:01)
[2018-05-21] MEDS: FINASTERIDE 5 MG TAB PO SCH (09:02)
[2018-05-21] MEDS: ENOXAPARIN 40 MG/0.4 ML SYR SC SCH (09:05)
[2018-05-21] MEDS: (Silodosin [Rapaflo] 8 MG) PO SCH (09:08)
[2018-05-21] MEDS: ISOSORBIDE DINITRATE 10 MG TAB PO SCH ×2 (10:51→15:59)
--- NOTE | 2018-05-21 15:46 | ASMTCMCOM ---
CM Note CM Note Notes: 05/21/2018 Case Management Note Discussed pt during rounds this morning. Daughter present. Case Management requested daughter increase caregiver support to 24 hours/day. Confirmed [facility] accepted pt for RN PT. Met w/pt daughter later in the afternoon to discuss discharge needs. Catrachita requested information on hospital bed delivery. Catrachita to call [facility] to arrange for bed delivery today or tomorrow. Catrachita to pay out of pocket initially to expedite bed delivery. Notified MD of need for prescription. Case Management to fax prescription, face sheet and hospital notes to [facility] once obtained. Provided unskilled home care list to Catrachita. Catrachita to call [facility] ([place] is her neighbor) and arrange 24 hour support in the home. Catrachita is unhappy with [facility] and not inclined to initiate services. Pt PCP Dr. Vidal is part of [facility] and provides house calls. Discussed benefits of palliative care. Provided handouts on difference between palliative care vs hospice. Catrachita is interested in more information from MD's. Case Management d/c poc: Home with 24 hour caregiver support and [facility] RN PT. Case Management to follow. Date Signed: 05/21/2018 03:45 PM Electronically Signed By:Nay Boothe RN
--- NOTE | 2018-05-21 16:00 | HOSPPROG ---
Hospitalist Progress Note Assessment/Plan: 88 yo M w/ HTN and CHB s/p PPM presents with chest pain found to have NSTEMI. 1. Acute coronary syndrome/CAD: s/p PCI to RCA. Now chest pain free. - Has diffuse disease to left coronary system (LAD and LCx). Per cards, would be high risk PCI or CABG. Patient/family wanting to pursue med therapy - ASA 81, clopidogrel 75 - Bad reaction to statins in the past so not initiating - I discussed palliative/hospice care with patient's daughter today. Not interested in hospice yet. Placed outpatient pall care order 2. Acute metabolic encephalopathy: Due to medications/environment. Likely has component of mild chronic dementia - currently lives independently. - Discontinued all centrally acting meds (phenergan, muscle relaxer) - Check UA/urine culture with increased urinary frequency, leukocytosis 3. Hypotension: Slightly lower BP today - Stopped imdur (started yesterday), finasteride, rapaflo 4. Deconditioning - PT/OT recommending SNF but pt/family not agreeable. Daughter working on setting up 24 hour supervision. 5. CHB: S/p pacemaker placement. 6. HTN: Holding home valsartan and amlodipine with low BPs 7. BPH: Holding home meds VTE ppx: LMWH Code: full Diet: cardiac Dispo: Remain inpatient for ongoing cardiac monitoring. Also unsafe to discharge from mobility stand point. Subjective: Didn't sundown last night but very sleepy throughout day. More alert per daughter when he's awake. No chest pain. Objective: Vital Signs Temp Pulse Resp BP Pulse Ox 36.3 C 84 16 89/51 L 91 L 05/21/18 12:00 05/21/18 12:00 05/21/18 12:00 05/21/18 12:00 05/21/18 12:00 Laboratory Results 05/21/18 03:54 05/21/18 03:54 05/20/18 05/21/18 05/22/18 05:59 05:59 05:59 Intake Total 100 750 Output Total 50 Balance 100 700 - Physical Exam Constitutional: no apparent distress Eyes: PERRL, anicteric sclera Ears, Nose, Mouth, Throat: moist mucous membranes Cardiovascular: regular rate and rhythym, No edema Respiratory: no respiratory distress Gastrointestinal: normoactive bowel sounds Genitourinary: no bladder fullness Skin: warm Musculoskeletal: full muscle strength Neurologic: other (alert, answering some questions appropriately) Psychiatric: encephalopathic ICD10 Worksheet Patient Problems: Problems Problem Status Onset Chest pain Acute HTN (hypertension) Acute chronic disease mgmt/transitional care Acute
[2018-05-22] MEDS: LEVOTHYROXINE 88 MCG TAB PO SCH (05:37)
[2018-05-22] MEDS: ASPIRIN 81 MG CHEWABLE TAB PO SCH (08:50)
[2018-05-22] MEDS: CLOPIDOGREL BISULFATE 75 MG TAB PO SCH (08:50)
[2018-05-22] MEDS: ENOXAPARIN 40 MG/0.4 ML SYR SC SCH (08:50)
--- NOTE | 2018-05-22 15:55 | ASMTCMCOM ---
CM Note CM Note Notes: 05/22/2018 Case Management Note Met w/daughter Catrachita to confirm d/c plan. Hospital bed delivery planned for Friday. Catrachita understands she has to private pay as Medicare will not cover at this time. Private caregivers have agreed to increase shifts to round the clock. Catrachita has list unskilled caregiver agencies if needed in the future. [facility] to [facility]. Faxed updates to [facility]. Faxed referral to [facility] at request of [facility] pall member. Steven to meet Catrachita after discharge to discuss services. Case Management d/c poc: [facility] with 24 hour private care with [facility]. Date Signed: 05/22/2018 03:53 PM Electronically Signed By:Nay Boothe RN
--- NOTE | 2018-05-22 16:31 | HOSPPROG ---
Hospitalist Progress Note Assessment/Plan: 88 yo M w/ HTN and CHB s/p PPM presents with chest pain found to have NSTEMI. s/p PCI to RCA Diffuse LAD/LCX disease, felt to be high risk. medical mgmt is being optimized 1. Acute coronary syndrome/CAD: s/p PCI to RCA. Now chest pain free. - Has diffuse disease to left coronary system (LAD and LCx). Per cards, would be high risk PCI or CABG. Patient/family wanting to pursue med therapy - ASA 81, clopidogrel 75 - Bad reaction to statins in the past so not initiating -will start Coreg - we discussed palliative/hospice care with patient's daughter today. Not interested in hospice yet. Placed outpatient pall care order 2. Acute metabolic encephalopathy: Due to medications/environment. Likely has component of mild chronic dementia - currently lives independently. - Discontinued all centrally acting meds (phenergan, muscle relaxer) - UA c/w bacteriuria, see below -appears clearing and near baseline. 3. Hypotension: Slightly lower BP today - Stopped imdur (started yesterday), finasteride, rapaflo -BB starting per above 4. Deconditioning - PT/OT recommending SNF but pt/family not agreeable. Daughter working on setting up 24 hour supervision. 5. CHB: S/p pacemaker placement. 6. HTN: Holding home valsartan and amlodipine with low BPs 7. BPH: Holding home meds. Will restart 8. Bacteriuria and possible UTI -Start Rocephin, await culture VTE ppx: LMWH Code: full Diet: cardiac Dispo: likely d/c tomorrow Subjective: no cp or sob. no n/v. still somewhat confused per daughter. Objective: Vital Signs Temp Pulse Resp BP Pulse Ox 36.9 C 82 18 120/67 94 05/22/18 16:00 05/22/18 16:00 05/22/18 16:00 05/22/18 16:00 05/22/18 16:00 Laboratory Results 05/22/18 03:52 05/22/18 03:52 05/21/18 05/22/18 05/23/18 05:59 05:59 05:59 Intake Total 750 550 Output Total 50 75 125 Balance 700 475 -125 - Physical Exam Constitutional: no apparent distress Eyes: PERRL, EOMI Ears, Nose, Mouth, Throat: moist mucous membranes, No dry mucous membranes Cardiovascular: regular rate and rhythym, edema Respiratory: no respiratory distress, no rales or rhonchi, clear to auscultation Gastrointestinal: normoactive bowel sounds, soft, non-tender abdomen Skin: warm Neurologic: AAOx3 Psychiatric: interacting appropriately, not anxious, not encephalopathic Lymph, Heme, Immunologic: No petechiae ICD10 Worksheet Patient Problems: Problems Problem Status Onset Chest pain Acute HTN (hypertension) Acute chronic disease mgmt/transitional care Acute
[2018-05-22] MEDS: FINASTERIDE 5 MG TAB PO ONE ×2 (16:56→17:16)
[2018-05-22] MEDS: CARVEDILOL 3.125 MG TAB PO SCH (17:12)
[2018-05-23] MEDS: CARVEDILOL 3.125 MG TAB PO SCH (08:55)
[2018-05-23] MEDS: CLOPIDOGREL BISULFATE 75 MG TAB PO SCH (08:55)
[2018-05-23] MEDS: ASPIRIN 81 MG CHEWABLE TAB PO SCH (08:55)
[2018-05-23] MEDS: ENOXAPARIN 40 MG/0.4 ML SYR SC SCH (08:55)
[2018-05-23] MEDS: FINASTERIDE 5 MG TAB PO SCH (08:56)
[2018-05-23 11:17] VITALS: BP 94/52
[2018-05-23] MEDS: LEVOTHYROXINE 88 MCG TAB PO SCH (12:57)
--- NOTE | 2018-05-23 13:41 | PDDCSUM ---
Discharge Summary Discharge Summary: HPI/Hospital Course: 88 yo M w/ HTN and CHB s/p PPM presents with chest pain found to have NSTEMI. s/p PCI to RCA Diffuse LAD/LCX disease, felt to be high risk. medical mgmt is being optimized BP was soft and therefore BP meds were stopped. Carvedilol low dose was restarted and he has tolerated well thus far Hospitalization also noted for AMS/Encephalopathy which appeared to be clearing and possibly due in part by delirium from hospital location. He will f/u with Cardiology as well as PCP 1. Acute coronary syndrome/CAD: s/p PCI to RCA. Now chest pain free. - Has diffuse disease to left coronary system (LAD and LCx). Per cards, would be high risk PCI or CABG. Patient/family wanting to pursue med therapy - ASA 81, clopidogrel 75 - Bad reaction to statins in the past so not initiating -low dose coreg - we discussed palliative/hospice care with patient's daughter today. Not interested in hospice yet. Placed outpatient pall care order 2. Acute metabolic encephalopathy: Due to medications/environment. Likely has component of mild chronic dementia - currently lives independently. - Discontinued all centrally acting meds (phenergan, muscle relaxer) - UA c/w bacteriuria, see below -appears clearing and near baseline. 3. Hypotension: Slightly lower BP today - Stopped imdur (started yesterday), rapaflo -BB starting per above 4. Deconditioning - PT/OT recommending SNF but pt/family not agreeable. Daughter working on setting up 24 hour supervision. 5. CHB: S/p pacemaker placement. 6. HTN: Holding home valsartan and amlodipine with low BPs 7. BPH: 8. Bacteriuria and possible UTI -Started Rocephin, now transitioning to Omnicef for 5 additional days. Will need f/u as an op Exam: NAD AAOX3 RRR CTA B S/NT/ND MEDS: SEE MED REC TOTAL TIME SPENT ON D/C IS 35 MIN
--- NOTE | 2018-05-23 13:43 | PDIAF ---
- Diagnosis Diagnosis: NSTEMI Code Status: Full Code - Medication Management Discharge Medications: electronically signed and located in the Home Medication List. - Orders Services needed: Home Care, Registered Nurse, Physical Therapy, Occupational Therapy, Speech Language Pathologist Home Care Face to Face: I certify that this patient was under my care and that I had the required [id number] encounter meeting the encounter requirements on the discharge day. My findings support the fact that the patient is homebound as defined in Home Care Face to Face Continued: CMS Chapter 7 Medicare Benefits Manual 30.1.1 , The condition of the patient is such that there exists a normal inability to leave home and consequently, leaving home would require a considerable and taxing effort. Diet Recommendation: no restrictions on diet Diet Texture: Regular Texture Diet, Thin Liquids, Meds Whole w/Liquids Additional Instructions: Activity: as tolerated F/u: with PCP next week F/u: with Cardiology in 2-4 weeks Please check BP three times per day and document in a journal . If BPs are consistently below 100 systolic (top number) or if dizzy, discontinue Carvedilol and discuss with your physician - Follow Up Care Current Providers and Referrals: Gabino Christianson MD [Primary Care Provider] - As per Instructions
--- NOTE | 2018-05-23 14:06 | ASMTDCNOTE ---
Case Management Discharge Discharge Order Complete? Answers: Yes Patient to Obtain Answers: via Family Medications Transportation Arranged Answers: Family/Friends Faxed Final Orders Answers: Yes Agency/Facility Transfer Answers: Yes Report Printed & Faxed to Receiving Agency Family Notified Answers: Yes Discharge Comments Notes: Discussed discharge plan with pt's daughter, Catrachita. Submit discharge ppwk to [facility]. Catrachita will transport pt back to [facility]. No other CM needs identified. Date Signed: 05/23/2018 02:05 PM Electronically Signed By:NIRAJ Jones
--- NOTE | 2018-05-23 14:07 | ASMTLACE ---
LACE Length of stay for Answers: 3 days current admission Acuity / Level of Answers: Yes Care: Did the patient have an inpatient admission? Comorbidities - select Answers: Any tumor (including all that apply lymphoma or leukemia) Cerebrovascular disease (CVA, TIA, aneurysms, vasc ular dementia) Other Notes: HTN # of Emergency department Answers: 1-2 visits in the last 6 months Score: 11 Date Signed: 05/23/2018 02:07 PM Electronically Signed By:NIRAJ Jones
--- NOTE | 2018-05-23 14:15 | ASDISCHSUM ---
Discharge Information Plan Status:Home with Home Health Medically Cleared to Leave: Discharge Date: D/C Disposition:Home Health Service [facility] D/C Disposition:[id number] Projected Discharge Date:05/23/2018 11:00 AM Transportation at D/C:Family Discharge Delay Reason: Follow-Up Date:05/23/2018 11:00 AM Discharge Slot: Final Diagnosis: Placement Information Referral Type:*Home Health Care Services Referral ID:[id number] Provider Name:[facility] Address 1:[address] [address] Phone Number: Address 2: Fax Number: [facility]:[place] Selection Factors: State:[place] Referral Type:Palliative Care Referral ID:[id number] Provider Name:[facility] Address 1:[address] Phone Number: Address 2: Fax Number: [facility]:[place] Selection Factors: State:[place] Patient Contact Information Contact Name:SEA Relationship:Daughter Address: City:[place] Alternate Phone: State/Zip Code:[place] Email: Financial Information Financial Class:Medicare Primary Plan Desc:MEDICARE INPATIENT Primary Plan Number:[id number] Secondary Plan Desc:ERIKA Secondary Plan Number:[id number] Assessment Information LACE LACE Length of stay for Answers: 3 days current admission Acuity / Level of Answers: Yes Care: Did the patient have an inpatient admission? Comorbidities - select Answers: Any tumor (including all that apply lymphoma or leukemia) Cerebrovascular disease (CVA, TIA, aneurysms, vasc ular dementia) Other Notes: HTN # of Emergency department Answers: 1-2 visits in the last 6 months Score: 11 Date Signed: 05/23/2018 02:07 PM Electronically Signed By:INRAJ Jones [facility] CM Progress Note CM Note CM Note Notes: 05/20/2018 Case Management Note Discussed pt during rounds this morning. Pt admitted for chest pain, NSTEM h/o TIA 05/2016. Met w/pt and daughter Catrachita [phone] today to discuss d/c needs. Pt lives alone at [facility]. Catrachita had hired private caregivers to come twice a day for 3 hours a vii. Pt takes meals in the dining garza. Pt does not use [employer] services. Pt has history of sundowning here in hospital. Faxed referrals to [facility] for RN PT OT d/t dementia specific programs. Case Management d/c poc: [facility] pending acceptance. Case Management to follow. Date Signed: 05/20/2018 05:16 PM Electronically Signed By:Nay Boothe RN [facility] CM Progress Note CM Note CM Note Notes: 05/21/2018 Case Management Note Discussed pt during rounds this morning. Daughter present. Case Management requested daughter increase caregiver support to 24 hours/day. Confirmed [facility] accepted pt for RN PT. Met w/pt daughter later in the afternoon to discuss discharge needs. Catrachita requested information on hospital bed delivery. Catrachita to call [facility] to arrange for bed delivery today or tomorrow. Catrachita to pay out of pocket initially to expedite bed delivery. Notified MD of need for prescription. Case Management to fax prescription, face sheet and hospital notes to [facility] once obtained. Provided unskilled home care list to Catrachita. Catrachita to call [facility] ([facility] is her neighbor) and arrange 24 hour support in the home. Catrachita is unhappy with [employer] and not inclined to initiate services. Pt PCP Dr. Vidal is part of [facility] and provides house calls. Discussed benefits of palliative care. Provided handouts on difference between palliative care vs hospice. Catrachita is interested in more information from MD's. Case Management d/c poc: Home with 24 hour caregiver support and [facility] PT. Case Management to follow. Date Signed: 05/21/2018 03:45 PM Electronically Signed By:Nay Boothe RN [facility] CM Progress Note CM Note CM Note Notes: 05/22/2018 Case Management Note Met w/daughter Catrachita to confirm d/c plan. Hospital bed delivery planned for Friday. Catrachita understands she has to private pay as Medicare will not cover at this time. Private caregivers have agreed to increase shifts to round the clock. Catrachita has list unskilled caregiver agencies if needed in the future. Faxed [facility] to [facility]. Faxed updates to [facility]. Faxed referral to [facility] at request of [facility] pall memberLivia Harris to meet Catrachita after discharge to discuss services. Case Management d/c poc: [facility] with 24 hour private care with [facility]. Date Signed: 05/22/2018 03:53 PM Electronically Signed By:Nay Boothe RN Case Management Discharge Plan Note Case Management Discharge Discharge Order Complete? Answers: Yes Patient to Obtain Answers: via Family Medications Transportation Arranged Answers: Family/Friends Faxed Final Orders Answers: Yes Agency/Facility Transfer Answers: Yes Report Printed & Faxed to Receiving Agency Family Notified Answers: Yes Discharge Comments Notes: Discussed discharge plan with pt's daughter, Catrachita. Sub[facility] ppwk to [facility]. Catrachita will transport pt back to [facility]. No other CM needs identified. Date Signed: 05/23/2018 02:05 PM Electronically Signed By:NIRAJ Jones Intervention Information Intervention Type:*Incorrect Registration Date of Service:05/19/2018 09:56 AM Patient Type:Inpatient Staff Member:Brooke Rubalcava Hours: Discipline: Severity: Comment: Intervention Type:*IM-Signed Date of Service:05/23/2018 02:13 PM Patient Type:Inpatient Staff Member:NIRAJ Mariano Ema Hours: Discipline: Severity: Comment:
== END 2018-05-23 15:12 | disposition home health service (06) | DRG 246 ==
LOC: INTOOBSV 06:51 → F2W 08:35 → OBSVTOIN 16:52
PROVIDERS: ADMIT Student in an Organized Health Care Education/Training Program; ATTEND Student in an Organized Health Care Education/Training Program
PROC: 027034Z Dilation of Coronary Artery, One Artery with Drug-eluting Intraluminal Device, Percutaneous Approach (ICD-10-PCS; principal; 2018-05-19)
DX: I21.4 Non-ST elevation (NSTEMI) myocardial infarction (principal); G93.41 Metabolic encephalopathy; N39.0 Urinary tract infection, site not specified; R82.71 Bacteriuria; E86.9 Volume depletion, unspecified; F03.90 Unspecified dementia, unspecified severity, without behavioral disturbance, psychotic disturbance, mood disturbance, and anxiety; N40.1 Benign prostatic hyperplasia with lower urinary tract symptoms; I10 Essential (primary) hypertension; E78.5 Hyperlipidemia, unspecified; I25.10 Atherosclerotic heart disease of native coronary artery without angina pectoris; Z95.810 Presence of automatic (implantable) cardiac defibrillator
CPT/HCPCS: 84484-ER; 92523-GN; 92610-GN; 97162-GP; 97166-GO; 97530-GO; 97530-GP; 97535-GO; C1725; C1760; C1769; C1874; C1887; C9600; J0583; J0696; J1644; J1650; J2250; J2405; J2550; J3010; Q9967